=== PATIENT | male | born 2000 | race American Indian/Alaskan Native ===

== ENCOUNTER 2020-08-28 00:11 | Emergency (ER) | payer SELFPAY ==
[2020-08-28 01:36] LABS: Basophils % (Auto) 0.2 % (0.0-1.8); Eosinophils # (Auto) 0.1 K/mm3 (0.0-0.4); Eosinophils % (Auto) 0.8 % (0.0-4.3); Hematocrit 44.3 % (35.5-45.6); Lymphocytes # (Auto) 1.4 K/mm3 (1.2-5.4); Lymphocytes % (Auto) 12.4 % (13.4-35.0); Mean Corpuscular HGB Conc 34 % (32-34); Mean Corpuscular Volume 87 fl (84-94); Monocytes # (Auto) 0.7 K/mm3 (0.0-0.8); Monocytes % (Auto) 6.1 % (0.0-7.3); Platelet Count 229 K/mm3 (140-440); Red Blood Count 5.09 M/mm3 (3.65-5.03); Red Cell Distribution Width 13.2 % (13.2-15.2)
[2020-08-28 01:58] LABS: Alanine Aminotransferase 14 units/L (7-56); Albumin 4.7 g/dL (3.9-5); BUN/Creatinine Ratio 8; Blood Urea Nitrogen 9 mg/dL (9-20); Calcium 9.9 mg/dL (8.4-10.2); Hemolysis Index 7
[2020-08-28] MEDS ORDERED: KETOROLAC 30 MG/1 ML INJ IM ONE (02:11)
[2020-08-28] MEDS ORDERED: ONDANSETRON 4 MG ODT TAB PO ONE (02:11)
--- NOTE | 2020-08-28 02:54 | Cat Scan Report ---
CT ABDOMEN AND PELVIS WITHOUT CONTRAST INDICATION / CLINICAL INFORMATION: Left flank pain, kidney stones suspected. TECHNIQUE: Axial CT images were obtained through the abdomen and pelvis without IV contrast. All CT scans at [facility] are performed using CT dose reduction for ALARA by means of automated exposure control. COMPARISON: None available. FINDINGS: LOWER CHEST: No significant abnormality. LIVER: No significant abnormality. GALLBLADDER: No significant abnormality. BILE DUCTS: No significant abnormality. PANCREAS: No significant abnormality. SPLEEN: No significant abnormality. ADRENALS: No significant abnormality. RIGHT KIDNEY and URETER: There is a 3 mm nonobstructive right intrarenal stone. No hydronephrosis or ureteral stone. LEFT KIDNEY and URETER: No significant abnormality. STOMACH and SMALL BOWEL: No significant abnormality. COLON: No significant abnormality. APPENDIX: No significant abnormality. PERITONEUM: No free fluid. No free air. No fluid collection. LYMPH NODES: No significant adenopathy. AORTA and ARTERIES: No significant abnormality. IVC and VEINS: No significant abnormality. URINARY BLADDER: No significant abnormality. REPRODUCTIVE ORGANS: No significant abnormality. ADDITIONAL FINDINGS: None. SKELETAL SYSTEM: No significant abnormality. IMPRESSION: 1. A 3 mm nonobstructive right intrarenal stone is seen. No hydronephrosis or nephrolithiasis identif ied on the left. Signer Name: Shelley Davila MD Signed: 08/28/2020 2:49 AM Workstation Name: [id number]
--- NOTE | 2020-08-28 03:00 | Emergency Department Report ---
ED Abdominal Pain HPI - General Chief Complaint: Abdominal Pain Stated Complaint: INTENSE PRESSURE ON LEFT SIDE ABDOMIN Source: patient Mode of arrival: Ambulatory Limitations: No Limitations - History of Present Illness Initial Comments: Patient is a 20-year-old white male with no past medical history but with a significant family past medical history of kidney stones who presents to the ED with acute onset persistent intractable nausea and vomiting with left flank pain that radiates to the left lower quadrant area for the last 6 hours intermittently. Patient states that the nausea and vomiting get worse when the pain is strongest. Patient states that he has had multiple nausea and vomiting episodes since the onset of the symptoms. Patient denies testicular pain, he maturia, dysuria, urinary frequency and urgency, headache, diarrhea, low back pain, traumatic injury, heavy lifting, fall, hematochezia, hematemesis, fever and chills. MD Complaint: abdominal pain, flank pain (Left flank pain), other (Nausea and vomiting) -: Sudden, hour(s) (6) Location: LLQ, L flank Radiation: LLQ, L flank Migration to: no migration Severity scale (0 -10): 3 Quality: stabbing, sharp Consistency: intermittent Improves With: nothing Worsens With: nothing Context: other (Family history of recurrent kidney stones) Associated Symptoms: denies other symptoms, nausea, vomiting. denies: diarrhea, fever, chills, constipation, dysuria, hematemesis, hematochezia, melena, anorexia, syncope, other - Related Data Previous Rx's Medication Instructions Recorded Last Taken Type Ketorolac [Toradol] 10 mg PO Q8H PRN #20 tablet 08/28/20 Unknown Rx Ondansetron [Zofran Odt] 4 mg PO Q6HR PRN #20 tab.rapdis 08/28/20 Unknown Rx Tamsulosin [Flomax] 0.4 mg PO QDAY #10 cap 08/28/20 Unknown Rx Allergies Allergy/AdvReac Type Severity Reaction Status Date / Time No Known Allergies Allergy Unverified 08/28/20 00:22 ED Review of Systems ROS: Stated complaint: INTENSE PRESSURE ON LEFT SIDE ABDOMIN Other details as noted in HPI Comment: All other systems reviewed and negative Constitutional: denies: chills, fever Eyes: denies: eye pain, eye discharge, vision change ENT: denies: ear pain, throat pain Respiratory: denies: cough, shortness of breath, wheezing Cardiovascular: denies: chest pain, palpitations Endocrine: no symptoms reported Gastrointestinal: abdominal pain (Left flank pain that radiates to the left lower quadrant), nausea, vomiting. denies: diarrhea Genitourinary: denies: urgency, dysuria Musculoskeletal: denies: back pain, joint swelling, arthralgia Skin: denies: rash, lesions Neurological: denies: headache, weakness, paresthesias Psychiatric: denies: anxiety, depression Hematological/Lymphatic: denies: easy bleeding, easy bruising ED Past Medical Hx - Past Medical History Previous Medical History?: Yes Hx Asthma: Yes - Surgical History Past Surgical History?: No - Social History Smoking Status: Never Smoker Substance Use Type: Alcohol - Medications Home Medications: Home Medications Medication Instructions Recorded Confirmed Last Taken Type Ketorolac [Toradol] 10 mg PO Q8H PRN #20 tablet 08/28/20 Unknown Rx Ondansetron [Zofran Odt] 4 mg PO Q6HR PRN #20 tab.rapdis 08/28/20 Unknown Rx Tamsulosin [Flomax] 0.4 mg PO QDAY #10 cap 08/28/20 Unknown Rx ED Physical Exam - General Limitations: No Limitations General appearance: alert, in no apparent distress - Head Head exam: Present: atraumatic, normocephalic, normal inspection - Eye Eye exam: Present: normal appearance, PERRL, EOMI Pupils: Present: normal accommodation - ENT ENT exam: Present: normal exam, normal orophraynx, mucous membranes moist, TM's normal bilaterally, normal external ear exam - Neck Neck exam: Present: normal inspection, full ROM. Absent: tenderness - Respiratory Respiratory exam: Present: normal lung sounds bilaterally. Absent: respiratory distress, wheezes, chest wall tenderness, accessory muscle use - Cardiovascular Cardiovascular Exam: Present: regular rate, normal rhythm, normal heart sounds. Absent: systolic murmur, diastolic murmur, rubs, gallop - GI/Abdominal GI/Abdominal exam: Present: soft, normal bowel sounds. Absent: tenderness, gua rding, rebound, hyperactive bowel sounds, hypoactive bowel sounds, organomegaly - Extremities Exam Extremities exam: Present: normal inspection, full ROM, normal capillary refill - Back Exam Back exam: Present: normal inspection, full ROM. Absent: tenderness, CVA tenderness (R), CVA tenderness (L), muscle spasm, vertebral tenderness - Neurological Exam Neurological exam: Present: alert, oriented X3, CN II-XII intact, normal gait, reflexes normal - Psychiatric Psychiatric exam: Present: normal affect, normal mood - Skin Skin exam: Present: warm, dry, intact, normal color. Absent: rash ED Course Vital Signs 08/28/20 00:18 Temperature 97.6 F Pulse Rate 82 Respiratory 18 Rate Blood Pressure 173/106 O2 Sat by Pulse 98 Oximetry ED Medical Decision Making - Lab Data Result diagrams: 08/28/20 00:44 08/28/20 00:44 - Radiology Data Radiology results: report reviewed, image reviewed Findings [facility] [address] [place] [address] Cat Scan Report Signed Patient: RADHA LANE MR#: [id number] : 2000 Acct:[id number] Age/Sex: 20 / M ADM Date: 08/28/20 Loc: ED Attending Dr: Ordering Physician: FLORIN GOFF Date of Service: 08/28/20 Procedure(s): CT abdomen pelvis wo con Accession Number(s): [id number] cc: FLORIN GOFF CT ABDOMEN AND PELVIS WITHOUT CONTRAST INDICATION / CLINICAL INFORMATION: Left flank pain, kidney stones suspected. TECHNIQUE: Axial CT images were obtained through the abdomen and pelvis without IV c ontrast. All CT scans at this location are performed using CT dose reduction for ALARA by means of automated exposure control. COMPARISON: None available. FINDINGS: LOWER CHEST: No significant abnormality. LIVER: No significant abnormality. GALLBLADDER: No significant abnormality. BILE DUCTS: No significant abnormality. PANCREAS: No significant abnormality. SPLEEN: No significant abnormality. ADRENALS: No significant abnormality. RIGHT KIDNEY and URETER: There is a 3 mm nonobstructive right intrarenal stone. No hydronephrosis or ureteral stone. LEFT KIDNEY and URETER: No significant abnormality. STOMACH and SMALL BOWEL: No significant abnormality. COLON: No significant abnormality. APPENDIX: No significant abnormality. PERITONEUM: No free fluid. No free air. No fluid collection. LYMPH NODES: No significant adenopathy. AORTA and ARTERIES: No significant abnormality. IVC and VEINS: No significant abnormality. URINARY BLADDER: No significant abnormality. REPRODUCTIVE ORGANS: No significant abnormality. ADDITIONAL FINDINGS: None. SKELETAL SYSTEM: No significant abnormality. IMPRESSION: 1. A 3 mm nonobstructive right intrarenal stone is seen. No hydronephrosis or nephrolithiasis identified on the left. Signer Name: Shelley Davila MD Signed: 08/28/2020 2:49 AM Workstation Name: [id number] Transcribed By: [facility] Dictated By: Shelley Davila MD Electronically Authenticated By: Shelley Davila MD Signed Date/Time: 08/28/20248 DD/ 3 TD/TT: - Medical Decision Making This is a 20-year-old white male with no past medical history but with a significant family past medical history of kidney stones who presents to the ED with acute onset persistent intractable nausea and vomiting with left flank pain that radiates to the left lower quadrant area for the last 6 hours intermittently. Patient states that the nausea and vomiting get worse when the pain is strongest. Patient states that he has had multiple nausea and vomiting episodes since the onset of the symptoms. In the ED, patient is alert and oriented x3 and is not in distress. Lab test results were reviewed and showed acute leukocytosis of 11,200. The rest of the lab test results were nonactionable. Abdomen pelvis CT scan without contrast showed a 3 mm nonobstructive right intrarenal stone is seen. No hydronephrosis or nephrolithiasis identified on the left. On reevaluation, patient symptoms are well controlled medications. Patient was discharged home on pain medication, antiemetics and Flomax and was advised to follow-up with his primary care physician in 7 to 10 days for reevaluation or return to the ED immediately if symptoms get worse. - Differential Diagnosis Kidney stone; colitis; UTI; muscle strain; muscle spasm Critical care attestation.: If time is entered above; I have spent that time in minutes in the direct care of this critically ill patient, excluding procedure time. ED Disposition Clinical Impression: Acute abdominal pain, Nausea and vomiting in adult, Kidney stone on right side Disposition: -01 TO HOME OR SELFCARE Is pt being admited?: No Does the pt Need Aspirin: No Condition: Stable Instructions: Renal Colic, [id number], Kidney Stones, [id number], Nausea and Vomiting, Adult, [id number], Flank Pain, Adult, [id number] Additional Instructions: All lab test results were reviewed and are all nonactionable. Abdomen pelvis CT scan without contrast showed a nonobstructing 3 mm stone in the right kidney. There is no residual stone in the left kidney or in the ureter. This may be because of recently passed kidney stone. Therefore take medication with food, drink plenty of fluids and follow-up with your primary care physician in 7 to 10 days for reevaluation or return to the ED immediately if symptoms get worse. Prescriptions: Tamsulosin [Flomax] 0.4 mg PO QDAY #10 cap Ketorolac [Toradol] 10 mg PO Q8H PRN #20 tablet PRN Reason: Pain Ondansetron [Zofran Odt] 4 mg PO Q6HR PRN #20 tab.rapdis PRN Reason: Nausea Referrals: IFTIKHAR WEST MD [Staff Physician] - 3-5 Days Time of Disposition: 03:06 Print Language: SAUDI ARABIAN
[2020-08-28 03:26] LABS: Bacteria,Urine 1+ /HPF (Negative); Bilirubin,Urine NEG (Negative); Blood,Urine LG (Negative); Calcium Oxalate Crystals,Urine 3+; Color,Urine Yellow (Yellow); Mucus,Urine 3+ /HPF
[2020-08-28 03:27] LABS: RBC,Urine > 182.0 /HPF (0.0-6.0)
[2020-08-28 04:28] VITALS: BP 130/81
== END 2020-08-28 04:28 | disposition home or self-care (01) ==
LOC: ED 00:11
DX: N20.0 Calculus of kidney (principal)
CPT/HCPCS: 36415; 74176; 80053; 81001; 85025